=== PATIENT | female | born 1995 | race Caucasian/White ===

== ENCOUNTER 2020-04-11 15:10 | Outpatient (CLI) | payer MEDICAID ==
--- NOTE | 2020-04-11 17:10 | Ultrasound Report ---
PROCEDURE: OB First Trimester INDICATIONS: POSITIVE TEST OUTSIDE/PRIOR DATING DATA: Last menstrual period (LMP): 02.04.20. LMP-based estimated date of delivery (EDWINA): 11.10.20. First dating scan (date and location): 04.11.20. Estimated date of delivery (EDWINA) from first dating scan: . TECHNIQUE: Real-time scanning was performed of the fetus and maternal pelvic organs, with image documentation. COMPARISON: None FINDINGS: A single living intrauterine gestation is present, with a crown-rump length of 28 mm, patricia esponding to a 9 week 5 day gestation. heart rate is 169 bpm. Measurement variability in dating: +/- 4 weeks by LMP, +/- 7 days by mean sac diameter (use before 6 weeks gestation if crown-rump length not able to be measured), +/- 5 days by crown-rump length (6-12 weeks gestation). Maternal organs: Ovaries within normal limits. Limited images through the kidneys demonstrate no hy dronephrosis. IMPRESSION: Single living intrauterine gestation. Reviewed by: Magdy Denis MD on 04/11/2020 5:09 PM PST Approved by: Magdy Denis MD on 04/11/2020 5:09 PM PST Station ID: [id number]
== END 2020-04-11 15:11 | disposition home or self-care (01) ==
LOC: DI 15:10
PROVIDERS: ATTEND Nurse Practitioner Obstetrics & Gynecology
DX: Z32.01 Encounter for pregnancy test, result positive (principal)
CPT/HCPCS: 76801

== ENCOUNTER 2020-05-09 10:09 | Outpatient (CLI) | payer MEDICAID ==
[2020-05-09 10:41] LABS: BASOPHILS % (AUTO) 0.1 %; EOSINOPHILS # (AUTO) 0.1 10^3/uL (0.0-0.7); EOSINOPHILS % (AUTO) 1.5 %; HGB - HEMOGLOBIN 12.8 g/dL (12.0-16.0); LYMPHOCYTES # (AUTO) 1.5 10^3/uL (1.5-3.5); LYMPHOCYTES % (AUTO) 16.6 %; MEAN CORPUSCULAR VOLUME 88.6 fL (81.0-99.0); MEAN PLATELET VOLUME 9.6 fL (7.9-10.8); MONOCYTES # (AUTO) 0.4 10^3/uL (0.0-1.0); MONOCYTES % (AUTO) 4.1 %; NEUTROPHILS # (AUTO) 6.9 10^3/uL (1.5-6.6); NEUTROPHILS % (AUTO) 77.1 %; PLT - PLATELET COUNT 208 10^3/uL (130-450); RED BLOOD COUNT 4.13 10^6/uL (4.20-5.40); RED CELL DISTRIBUTION WIDTH 11.9 % (12.0-15.0); WHITE BLOOD COUNT 8.9 x10^3/uL (4.8-10.8)
[2020-05-11 12:52] LABS: HEPATITIS B SURFACE ANTIGEN NON-REACTIVE (NON-REACTIVE); HEPATITIS C ANTIBODY NON-REACTIVE (NON-REACTIVE)
[2020-05-11 13:36] LABS: HIV AG/AB 4TH GEN NON-REACTIVE (NON-REACTIVE)
== END 2020-05-09 10:10 | disposition home or self-care (01) ==
LOC: LAB 10:09
PROVIDERS: ATTEND Nurse Practitioner Obstetrics & Gynecology
DX: Z34.00 Encounter for supervision of normal first pregnancy, unspecified trimester (principal); Z36.89 Encounter for other specified antenatal screening
CPT/HCPCS: 36415; 81599; 85025; 86592; 86762; 86787; 86803; 86850; 86900; 86901; 87340; 87389

== ENCOUNTER 2020-07-03 07:13 | Outpatient (CLI) | payer MEDICAID ==
--- NOTE | 2020-07-05 11:57 | Ultrasound Report ---
PROCEDURE: OB Detailed Eval INDICATIONS: SUPERVISION NORMAL OUTSIDE/PRIOR DATING DATA: Last menstrual period (LMP): 02/04/2020. LMP-based estimated date of delivery (EDWINA): 11/10/2020. First dating scan (date and location): 04/11/2020. Estimated date of delivery (EDWINA) from first dating scan: 11/10/2020. TECHNIQUE: Real-time scanning was performed of the fetus, with image documentation and biometric measurements. Endovaginal scanning: Not performed COMPARISON: 04/11/2020 FINDINGS: General: A single living intrauterine gestation is present. Presentation: Breech Placenta: Placental position is anterior, without previa. Amniotic fluid index: 15.7 cm, 61st percentile for gestational age. heart rate: 149 beats per minute. Maternal cervical canal: 4.5 cm long; normal length is 2.5 cm or more. biometrics: Biparietal diameter: 5.1 cm, 21 weeks 3 days Head circumference: 19.2 cm, 20 weeks 3 days Abdominal circumference: 17.5 cm, 22 weeks 3 days Femur length: 3.8 cm, 22 weeks 2 days Estimated gestational age from initial scan: not applicable. Composite gestational age from present scan: 21 weeks 6 days Estimated weight and percentile: 487 g, 85th percentile Measurement variability in biometric dating: +/- 10 days from 12-20 weeks gestation, +/- 2 weeks from 20-30 weeks gestation, +/- 3 weeks at 30 weeks gestation or later. Anatomic survey: Neuro: Ventricles are normal at less than 10 mm. Cisterna magna is normal at 3-11 mm. Cerebellum i s normal in size and morphology. Nuchal skin fold: Normal at less than 6 mm between 14 and 20 weeks gestational age. Face: Nose and lips, facial profile are normal. Spine: No evidence for spina bifida. Heart: 4-chambered heart is present, with normal ventricular outflow tracts. Diaphragm: Diaphragm is intact. Stomach: Left-sided stomach is present. Kidneys: No hydronephrosis. Normal is less than 5 mm in 2nd trimester, less than 7 mm in 3rd trimester. Cord: 3 vessel cord has orthotopic insertion. Bladder: Normal in size. Extremities: All 4 extremities are visualized. IMPRESSION: Normal anatomic survey. Size is concordant with dates. Reviewed by: Gabriel Luna MD on 07/05/2020 11:56 AM PST Approved by: Gabriel Luna MD on 07/05/2020 11:56 AM PST Station ID: [id number]
== END 2020-07-03 07:14 | disposition home or self-care (01) ==
LOC: DI 07:13
PROVIDERS: ATTEND Advanced Practice Midwife
DX: Z34.00 Encounter for supervision of normal first pregnancy, unspecified trimester (principal); Z36.89 Encounter for other specified antenatal screening
CPT/HCPCS: 36415; 81511; 81599

== ENCOUNTER 2020-07-03 10:07 | Outpatient (CLI) | payer MEDICAID | END 2020-07-03 10:08 | disposition home or self-care (01) | LOC: LAB 10:07 | PROVIDERS: ATTEND Advanced Practice Midwife | DX: Z34.00 Encounter for supervision of normal first pregnancy, unspecified trimester (principal); Z36.89 Encounter for other specified antenatal screening | CPT/HCPCS: 36415; 81599 ==

== ENCOUNTER 2020-08-13 10:12 | Outpatient (CLI) | payer MEDICAID ==
[2020-08-13 18:26] LABS: HCT - HEMATOCRIT 34.4 % (37.0-47.0); MEAN CORPUSCULAR HEMOGLOBIN 30.5 pg (27.0-31.0); MEAN CORPUSCULAR VOLUME 95.3 fL (81.0-99.0); MEAN PLATELET VOLUME 10.7 fL (7.9-10.8); RED BLOOD COUNT 3.61 10^6/uL (4.20-5.40); RED CELL DISTRIBUTION WIDTH 12.3 % (12.0-15.0); WHITE BLOOD COUNT 9.1 x10^3/uL (4.8-10.8)
== END 2020-08-13 10:13 | disposition home or self-care (01) ==
LOC: LAB.N 10:12
PROVIDERS: ATTEND Nurse Practitioner Obstetrics & Gynecology
DX: Z36.89 Encounter for other specified antenatal screening (principal)
CPT/HCPCS: 36415; 82950; 85027

== ENCOUNTER 2020-10-22 08:00 | Outpatient (CLI) | payer MEDICAID | END 2020-10-22 23:59 | disposition home or self-care (01) | LOC: LAB.WC 08:00 | PROVIDERS: ATTEND Nurse Practitioner Obstetrics & Gynecology | DX: Z36.85 Encounter for antenatal screening for Streptococcus B (principal) | CPT/HCPCS: 87081; 87797 ==

== ENCOUNTER 2020-11-02 08:00 | Outpatient (CLI) | payer MEDICAID | END 2020-11-02 23:59 | disposition home or self-care (01) | LOC: LAB.WC 08:00 | PROVIDERS: ATTEND Nurse Practitioner Obstetrics & Gynecology | DX: Z36.85 Encounter for antenatal screening for Streptococcus B (principal) | CPT/HCPCS: 87797 ==

== ENCOUNTER 2020-11-12 07:36 | Observation (INO) | payer MEDICAID ==
[2020-11-12] MEDS: SODIUM CHLORIDE FLUSH 0.9% 10 ML SYRINGE IVP SCH ×2 (08:15→18:33)
[2020-11-12] MEDS ORDERED: OXYTOCIN/SODIUM CHLORIDE 500 ML IV PRN (08:21)
[2020-11-12] MEDS ORDERED: OXYTOCIN 10 UNIT/ML VIAL IM PRN (08:21)
[2020-11-12] MEDS ORDERED: miSOPROStoL 200 MCG TABLET BC PRN (08:21)
[2020-11-12] MEDS ORDERED: LIDOCAINE-MPF 1% 30 ML VIAL ID PRN (08:21)
[2020-11-12] MEDS ORDERED: TRANEXAMIC ACID IN NACL 1,000 MG/100 ML BAG IV PRN (08:21)
[2020-11-12] MEDS ORDERED: SODIUM CHLORIDE FLUSH 0.9% 10 ML SYRINGE IVP PRN (08:21)
[2020-11-12] MEDS ORDERED: METHYLERGONOVINE 0.2 MG/ML VIAL IM PRN (08:21)
[2020-11-12] MEDS ORDERED: CARBOPROST TROMETHAMINE 250 MCG/ML AMP IM PRN (08:21)
[2020-11-12] MEDS: miSOPROStoL 100 MCG TABLET BC SCH ×4 (08:43→18:33)
[2020-11-12 08:44] LABS: BASOPHILS % (AUTO) 0.3 %; EOSINOPHILS # (AUTO) 0.1 10^3/uL (0.0-0.7); EOSINOPHILS % (AUTO) 1.3 %; HCT - HEMATOCRIT 34.5 % (37.0-47.0); LYMPHOCYTES # (AUTO) 1.1 10^3/uL (1.5-3.5); LYMPHOCYTES % (AUTO) 12.6 %; MEAN CORPUSCULAR HEMOGLOBIN 27.2 pg (27.0-31.0); MEAN CORPUSCULAR HGB CONC 31.9 g/dL (32.0-36.0); MEAN CORPUSCULAR VOLUME 85.2 fL (81.0-99.0); MONOCYTES # (AUTO) 0.4 10^3/uL (0.0-1.0); MONOCYTES % (AUTO) 4.4 %; NEUTROPHILS % (AUTO) 80.5 %; PLT - PLATELET COUNT 228 10^3/uL (130-450); RED BLOOD COUNT 4.05 10^6/uL (4.20-5.40); RED CELL DISTRIBUTION WIDTH 14.1 % (12.0-15.0); WHITE BLOOD COUNT 8.7 x10^3/uL (4.8-10.8)
--- NOTE | 2020-11-12 08:50 | HISTORY & PHYSICAL EXAMINATION ---
Admit History - Visit Reason Visit Reason: Other - : 1 Parity: 0 Premature: 0 Ectopic: 0 : 0 Care: positive: [facility] Risk/History: positive: None Complications This : positive: None Smoking Status: Never smoker - Mother's Labs Mother's Blood Type: positive: B Mother's RH: positive: Positive GBS: positive: Group B Step Negative Rubella Status: positive: Immune Review of Systems - Constitutional Constitutional: denies: Fatigue, Fever, Chills, Malaise - Eyes Eyes: denies: Blurred vision, Spots in vision, Dipolpia - Cardiovascular Cariovascular: denies: Irregular heart rate, Palpitations, Chest pain, Edema - Respiratory Respiratory: denies: Cough, SOB at rest - Gastrointestinal Gastrointestinal: denies: Change in bowel habits - Integumentary Integumentary: denies: Rash, Pruritis - Neurological Neurological: denies: Headache Physical - Abdominal Exam Contraction Frequency (min/apart): irregular Contraction Intensity: positive: Mild Uterine Resting Tone: positive: Soft - Monitoring Heart Rate Baseline: 120 Strip Review: positive: Category I - Presentation Presentation: positive: Vertex - Vaginal Exam Membranes: positive: Membranes intact - Speculum Exam Speculum Exam Performed: positive: No Plan for Labor - Plan For Labor I expect patient to be DC'd or transferred within 96 hours.: Yes Plan for Labor: HPI: This 25yo @ 40.2wks gestation presents today for elective induction of labor. She denies vaginal bleeding, leakage of fluid or contractions. She reports +FM. She reports she is slightly nervous but overall feeling well. She is supported by her partner Conner. She has been a patient of [facility] through the duration of her which has been complicated only by excessive weight gain in (73lbs). Dating criteria: LMP: 02/04/2020 Initial ultrasound @ 9.4wks c/w LMP dating Serial exams - agree OB History: G1: Current Medications: PNV Allergies: NKDA PMHx: unremarkable Surgical Hx: unremarkable Social Hx: Never smoker. No ETOH or IVDA. She works at [employer]. Partner Conner. Family Hx: Diabetes - MGF, PGF, Mother, MGM; HTN - Mother; Breast cancer -MGM; Arthritis - MGM course: Initial US: at 9.4wks c/w LMP for final EDWINA 11/10/2020 B pos/Rubella immune VZV: immune Genetic testing: Serum integrated screen - negative FAS: FAS: Anterior placenta. CJ wnl. EFW 85%. 3VC. Glucola: 87 Influenza: 03/28/2020 TDAP: 08/23/2020 GBS @ 37.2 NEG HSV: denies self and partner Breast pump Rx: 08/23/2020 MOD: . Spouse Conner. It's a DEIDRE Prieto Jr (RJ). pp contraception: POPs pap: collected 04/13/2020- wnl, gc/ct neg Physical exam: Normocephalic, atraumatic Heart RRR w/o M/G/R Lungs CTAB Abdomen gravid, soft, nontender EFW 3800g SVE deferred FHR baseline 120, moderate variability, + accels, no decels Contractions intermittent which palpate soft and pt does not appreciate Bilateral LE's trace edema Mood is good Assessment: 25yo @ 40.2wks gestation by LMP Elective induction of labor GBS neg FHR Category I Plan: Pre-induction cervical ripening with misoprostol 50mcg BC q 4 hours Continuous monitoring Jacuzzi PRN. Nitrous oxide PRN. Epidural per maternal request. Anticipate . Reviewed plan of care with pt, partner and labor RN at the bedside who all verbalized understanding and agree to above plan. They deny further questions or concerns at this time.
[2020-11-12] MEDS: LACTATED RINGERS 1,000 ML IV SCH (18:31)
[2020-11-12] MEDS ORDERED: ZOLPIDEM 5 MG TABLET PO PRN (21:03)
[2020-11-13] MEDS: miSOPROStoL 100 MCG TABLET BC SCH ×3 (01:30→09:14)
[2020-11-13] MEDS: SODIUM CHLORIDE FLUSH 0.9% 10 ML SYRINGE IVP SCH (09:13)
[2020-11-13] MEDS: LACTATED RINGERS 1,000 ML IV SCH (09:13)
--- NOTE | 2020-11-13 10:33 | PROVIDER PROGRESS NOTE ---
Subjective - Subjective Subjective: S: Discussed at length with patient and her partner that we are currently experiencing staffing issues on our unit. She is undergoing and elective induction and received 1 dose of 50mcg BC misoprostol for a total of 4 doses of misoprostol. Her contraction pattern is currently spacing out and she is tolerate her contractions well at this time. Her baby's heart tones are WNL and Category I. She will be discharged home today. We reviewed precautions, warning s/sx and labor precautions/ movement counting at length. She has the emergency contact number. We have printed off her records so she can hand carry them with her in the event she goes into spontaneous labor and needs to present to a nearby facility. She has been given resources for local obstetric units and we discussed that in the event she enters spontaneous labor or otherwise needs to be seen that she will present to [facility] as this is her preference and the nearest facility to her home. O: FHR baseline 125, moderate variability, + accels, no decels Contractions palpate mild every 4-8 minutes with soft resting tone. SVE deferred secondary to pt preference and mild contractions. A: 25yo @ 40.3wks gestation Pre-induction cervical ripening FHR Category I GBS negative Excessive weight gain in P: Pt discharged home with precautions. Has emergency contact information. Pt and partner verbalized understanding and agree to above plan. They deny further questions or concerns at this time. Objective - Vital Signs/Intake & Output Intake & Output: Intake & Output 11/10/20 11/11/20 11/12/20 11/13/20 23:59 23:59 23:59 23:59 Intake Total 650 Output Total 3 Balance 647 - Lab Results Fish Bones: 11/12/20 08:15
--- NOTE | 2020-11-13 10:34 | Discharge Plan ---
Discharge Plan Problem Reviewed?: Yes Disposition: Home, Self Care Condition: Good Diet: Regular Activity Restrictions: No Restrictions Shower Restrictions: No Driving Restrictions: No Weight Bearing: Full Weight No Smoking: If you smoke, Please STOP! Call for help.
== END 2020-11-13 10:45 | disposition home or self-care (01) ==
LOC: WFO 07:36 → FBP 07:42 → WFO 08:20 → FBP 08:21
PROVIDERS: ADMIT Nurse Practitioner Obstetrics & Gynecology; ATTEND Nurse Practitioner Obstetrics & Gynecology
DX: Z34.03 Encounter for supervision of normal first pregnancy, third trimester (principal); Z3A.40 40 weeks gestation of pregnancy
CPT/HCPCS: 36415; 85025; 86850; 86900; 86901; A9270; G0378; J7120